=== PATIENT | male | born 1945 | race Caucasian/White ===

== ENCOUNTER 2025-05-16 23:00 | Inpatient (IN) | payer MEDICARE ==
[~2025-05-16] VITALS: Ht 170.2 cm; Wt 72.7 kg
--- NOTE | 2025-05-16 23:24 | Physician Documentation ---
History of Present Illness ~ Chief Complaint: Weakness Stated Complaint: TRANSFER M ALS Time Seen by MD: 23:23 OK to notify your PCP?: Yes HPI Patient presents to the emergency room as a transfer from [facility] for acute kidney injury. Patient has a history of chronic renal insufficiency that has well as dementia in his oriented at two at her baseline. Patient also has history of coronary artery disease and diabetes mellitus. They has been monitoring patient's renal status for some time. Transferred to our facility for evaluation by Nephrology for possible dialysis. Apparently patient has been having increasing weakness over the past few days and caregiver brought patient in to be evaluated. Medication Reconciliation Allergies: Coded Allergies: No Known Allergies (Unverified , 05/16/25) Scheduled Atorvastatin Calcium (Atorvastatin Calcium), 1 TAB PO DAILY, (Reported) Carvedilol (Carvedilol), 1 TAB PO BID, (Reported) Clopidogrel Bisulfate (Clopidogrel), 1 TAB PO DAILY, (Reported) Empagliflozin (Jardiance), 1 TAB PO DAILY, (Reported) Hydralazine HCl (Hydralazine HCl), 1 TAB PO BID, (Reported) Oxybutynin Chloride (Ditropan Xl), 1 TAB PO DAILY, (Reported) Miscellaneous Medications Atorvastatin Calcium (Atorvastatin Calcium), 1 TAB PO, (Reported) Glipizide (Glipizide), (Reported) Tirzepatide (Mounjaro), (Reported) Valsartan (Valsartan), (Reported) Review of Systems ROS All review of systems negative except as per HPI Physical Exam Vital Signs: Temperature: 98.0, Source: Oral, Heart Rate: 85, Respiratory Rate: 16, BP: 117/59, Pulse Oximetry: 96, Weight: 72.730 Oxygen Flow Rate: 0 Physical Exam General: Patient is sleeping, easily arousable, pleasantly demented. Head: Normocephalic and atraumatic. Eyes: Conjunctival normal. EOMI. PERRL. ENT: Mucous membranes moist. Neck: Supple, trachea is midline. Chest: Clear to auscultation bilaterally without rales, rhonchi, or wheezes. There is no accessory muscle use or retractions. Cardiac: RRR without murmurs, gallops, or rubs. Progress Results/Orders Results/Orders Orders - DONNELL BYERS MD Cbc/Diff (05/16/25 23:31) BMP (05/16/25 23:31) Page Hospitalist (05/16/25 23:31) Fill Out Med Reconciliation (05/16/25 23:31) Vital Signs 05/16/25 05/16/25 23:02 23:38 Temp 98.0 Pulse 85 Resp 16 B/P (MAP) 117/59 Pulse Ox 96 O2 Flow Rate 0 Medical Decision Making Additional information obtaine: other Findings Patient presents to the emergency room with acute on chronic renal insufficiency transferred from [facility] for possible need for dialysis. We will admit for continued renal resuscitation Differential Dx:Considerations: Include: anemia, CVA, dehydration, dysrhythmia, electrolyte imbalance, encephalopathy, Guillain-Williams, hypoglycemia, hypotension, hypovolemia, labyrinthitis, Meniere's disease, myasathenia gravis, myocardial infarction, pulmonary embolus, renal failure, respiratory failure, TIA, VBI, vertigo central, vertigo peripheral, vestibular neuronitis, other Departure Admitted to Inpatient Unit: yes, to hospitalist Impression: Primary Impression: Acute kidney injury Additional Impression: Dehydration Condition: Guarded Referrals: NO PRIMARY CARE PROVIDER (PCP) Signature Scribe Signature: No scribe Attestation: The note accurately reflects work and decisions made by me.Donnell Byers MD 05/16/25 23:42 DONNELL BYERS MD May 16, 2025 23:24
[2025-05-16] MEDS ORDERED: VALS160T30 PO (23:36)
[2025-05-16] MEDS ORDERED: TIRZ2.5P SQ (23:36)
[2025-05-16] MEDS ORDERED: CLOP75TA34 PO (23:36)
[2025-05-16] MEDS ORDERED: HYDR50TA46 PO (23:36)
[2025-05-16] MEDS ORDERED: CARV-50 PO (23:36)
[2025-05-16] MEDS ORDERED: ATOR40TA72 PO (23:36)
[2025-05-16] MEDS ORDERED: ATOR40TA71 PO (23:36)
[2025-05-16] MEDS ORDERED: OXYB10TA30 PO (23:36)
[2025-05-16] MEDS ORDERED: EMPA10TA PO (23:36)
[2025-05-16] MEDS ORDERED: GLIP5TAB23 PO (23:36)
[2025-05-17] VITALS (11 sets, daily range): BP systolic 110–142; BP diastolic 50–68; PULSE 74–86; RESP 10–20; TEMP 97.3–98.2; O2SAT 94–99
[2025-05-17 00:09] LABS: CREATININE 4.87 MG/DL (0.60-1.10); TOTAL CARBON DIOXIDE 18.5 MMOL/L (24-32); eCRCL 12 ML/MIN; eGFR 12 ML/MIN
[2025-05-17] MEDS: LidoCAINE 2% Topical Jelly 11mL syringe (UROJET) TOP ONE (01:25)
[2025-05-17] MEDS ORDERED: ondansetron/PF 4mg/2ml inj IV PRN (01:25)
[2025-05-17] MEDS: PERFLUTREN PROTEIN-A MICROSPHR (Optison) 0.22 MG/ML 3ML VIAL IV ONE (01:25)
[2025-05-17] MEDS ORDERED: mag hydrox/Alum hydrox/simeth 30ml oral suspension PO PRN (01:25)
[2025-05-17] MEDS ORDERED: HYDROcodone/acetaminophen 5mg/325mg tablet PO PRN (01:25)
[2025-05-17] MEDS ORDERED: potassium Cl 40MEQ/1/2NS 520ml 520 ML IV PRN (01:25)
[2025-05-17] MEDS ORDERED: magnesium sulf-water 4G/100mL 100 ML IV PRN (01:25)
[2025-05-17] MEDS ORDERED: magnesium Cl slow-release 64mg tablet PO PRN (01:25)
[2025-05-17] MEDS ORDERED: potassium Cl 20 mEq SR tablet PO PRN (01:25)
[2025-05-17] MEDS ORDERED: magnesium sulf-water 2g/50mL 50 ML IV PRN (01:25)
--- NOTE | 2025-05-17 01:40 | HISTORY AND PHYSICAL-Residence ---
History & Physical Providers to CC Resident Creating Document: SANTA PEDRAZA, RES ~ History of Present Illness Reason for Admit\\Complaint: SEVERE MONE History of Present Illness Patient is a poor historian, history is limited. History gathered from ED sign- out and medical records from [place]. 80-year-old male with history of hypertension, diabetes, CKD, is transferred from [place] for further evaluation and management of severe acute kidney injury, with concern of possible dialysis and nephrology consultation. His niece (Audra: [phone]) had called [phone] as the patient was feeling unwell for a week. Patient states that he thought it was flu, and he has been feeling weak and not right since the last one week. He complains of chills. Denies significant chest pains, diaphoresis, fevers, nasal congestion, expectoration, palpitations, or weight loss/weight gain. No other associated symptoms. No aggravating or relieving factors. He states that Cancino catheter was placed today at the facility. He has history of CKD, unknown baseline creatinine. He lives by himself with his CAD. He has been having kidney issues for the last couple of years since they are on and off". Does not drink or smoke. Uses a walker for ambulation. Discussed advanced directives and he wishes to be a full code. He has a POLST that states DNR, but currently he is saying he wants to be a full code. He also has a POA Keyla jade [phone], will need to readdress code status with her in a.m.. Allergies: Coded Allergies: No Known Allergies (Unverified , 05/16/25) Home Medications Home Medications Active Reported Atorvastatin Calcium 40 Mg Tablet 1 Tab PO Jardiance (Empagliflozin) 10 Mg Tablet 1 Tab PO DAILY Valsartan 160 Mg Tablet Glipizide 5 Mg Tablet Carvedilol 12.5 Mg Tablet 1 Tab PO BID Hydralazine HCl 50 Mg Tablet 1 Tab PO BID Mounjaro (Tirzepatide) 2.5 Mg/0.5 Ml Pen.injctr Ditropan Xl (Oxybutynin Chloride) 10 Mg Tab.osm.24 1 Tab PO DAILY Clopidogrel (Clopidogrel Bisulfate) 75 Mg Tablet 1 Tab PO DAILY Atorvastatin Calcium 40 Mg Tablet 1 Tab PO DAILY Past Medical History Past Medical History Hypertension Diabetes type 2 CKD BPH CAD COPD hyperlipidemia Past Surgical History Surgical History Comment Unknown at this time ROS ROS Reviewed in full. All negative except for pertinent positive HPI. Exam Vitals: Vital Signs Date Time Temp Pulse Resp B/P (MAP) Pulse Ox O2 Delivery O2 Flow Rate FiO2 05/16/25 23:38 05/16/25 23:02 98.0 85 16 96 0 General: General: Awake and Alert x3, no acute distress. HEENT: Conjunctiva pink, Sclera clear, Mucus Membranes dry. Neck: Supple without masses and tenderness. Resp: Unlabored. Equal breath sounds bilaterally. Heart: Regular rhythm, normal S1 and S2, no rub, murmur or gallop. Abdomen: Soft and non tender no organomegaly. Normal bowel sounds x4 quadrant normoactive. No guarding or rigidity. Genitourinary: Cancino catheter in place Extremities: Normal ROM, no swelling, nontender. No cyanosis,clubbing or edema. REGULATORY ADMINISTRATOR: No gross motor or sensory abnormalities. Skin: Multiple bruises on the upper extremity and lower abdomen. Diagnostic Data Last Recorded Lab Results: 05/16/25 2335 Advance Care Planning Advanced Care plannin - 30 Minutes (I spent total of 15-30 minutes reviewing various resuscitative measures with the patient. Patient decided to be full code. He has a POLST that says DNR, but currently he is awake alert and oriented x3 and wants to be a full code. He also has a SIENNA Ramires contact number is [phone], will need to contact her and readdress code status in a.m..) Additional Plan 80-year-old male with history of hypertension, diabetes, CKD, is transferred from [place] for further evaluation and management of severe acute kidney injury, with concern of possible dialysis and nephrology consultation. AWAITING LABS AT OUR FACILITY Severe MONE on CKD, under evaluation [unknown baseline] Labs from [place]: WBCs 6.5, hemoglobin 12, hematocrit 37, neutrophils 77 platelets 116 BNP sodium 138, potassium 4.5, carbon dioxide 14, anion gap 10, BUN 108, creatinine 5.1, GFR 11, uric acid 8.7 He appears to be dehydrated, he does have a Cancino catheter in place that was placed in [facility] E's Continue to monitor I's and os Continue aggressive fluid resuscitation, he received 3 L fluid and the facility. Continue fluids NS at 100 mL/hour for now Follow up with ABG, urine spot studies, renal ultrasound, A1c, and TSH, lipid panel, UA U tox, echo and BNP Hold all nephrotoxic medications. Nephrology consultation in a.m. Diabetes type 2 Hypertension CKD Hyperlipidemia BPH Awaiting med rec Code Status: Full code DVT prophylaxis: Heparin Analgesia/sedation: None Line/tube: PIV GI prophylaxis: None Nutrition: Renal diet Prognosis: Guarded Disposition: Continue medical management. Patient decided to be full code. He has a POLST that says DNR, but currently he is awake alert and oriented x3 and wants to be a full code. He also has a STEPHENA Keyla contact number is [phone], will need to contact her and readdress code status in a.m.. Santa Pedraza MD. IM Resident PGY-3 Patient case discussed with resident, agree with the assessment and plan as above. Adelnie Diallo MD Critical Care Date of Service: May 17, 2025 Billing Provider: ADELINE DIALLO MD, ELIZABETH, RES May 17, 2025 01:40 ADELINE DIALLO MD May 17, 2025 14:31
[2025-05-17] MEDS ORDERED: ipratropium/albuterol 3ml nebule NEB PRN (01:55)
[2025-05-17] MEDS ORDERED: glucagon, human recombinant 1mg kit SUBCUT PRN (02:00)
[2025-05-17] MEDS ORDERED: dextrose 50%-water 50ml dispensing syringe IV PRN ×2 (02:00)
[2025-05-17] MEDS ORDERED: DEXTROSE 15 GM of carb/4 tabs (each vial/BOTTLE has 4 tablets) PO PRN ×2 (02:00)
[2025-05-17 02:16] LABS: MEAN PLATELET VOLUME 10.4 FL (7.4-10.4); RED CELL DISTRIBUTION WIDTH 15.1 % (11.5-14.5)
[2025-05-17] MEDS: normal saline 1000ml 1,000 ML IV SCH (02:59)
[2025-05-17 03:30] LABS: PRO BRAIN NATRIURETIC PEPTIDE 432 PG/ML (0-450)
[2025-05-17 05:22] LABS: INFLUENZA TYPE A ANTIGEN RAPID NEGATIVE (Negative); INFLUENZA TYPE B ANTIGEN RAPID NEGATIVE (Negative)
[2025-05-17] MEDS: INSULIN LISPRO 100 UNIT/ML INSULN.PEN MULTI-DOSE SQ SCH ×2 (07:00→09:00)
[2025-05-17] MEDS ORDERED: heparin, porcine 5000 units/ml vial SQ SCH (08:00)
[2025-05-17] MEDS: K and/or MAG REPLACEMENT MC SCH (08:00)
[2025-05-17 08:03] LABS: MEAN PLATELET VOLUME 9.2 FL (7.4-10.4); RED CELL DISTRIBUTION WIDTH 15.2 % (11.5-14.5)
[2025-05-17 08:26] LABS: CREATININE 4.56 MG/DL (0.60-1.10); TOTAL CARBON DIOXIDE 18.1 MMOL/L (24-32); eCRCL 12 ML/MIN; eGFR 13 ML/MIN
[2025-05-17] MEDS: docusate sod 100mg capsule PO SCH (08:35)
[2025-05-17] MEDS: heparin, porcine 5000 units/ml vial SQ SCH (08:36)
--- NOTE | 2025-05-17 09:11 | RADIOLOGY REPORT ---
CHEST RADIOGRAPH Indication: Congestion Technique: Single frontal view of the chest was obtained COMPARISON: None FINDINGS: Lines and Tubes: None Lungs: Left basilar subsegmental atelectasis. Pleura: No effusion. No pneumothorax. Cardiomediastinal contours: Unremarkable Bones: Unremarkable IMPRESSION: Left basilar subsegmental atelectasis.
[2025-05-17] MEDS ORDERED: sodium bicarbonate (8.4%) inj. 100 MEQ in normal saline 1000ml 1,000 ML IV SCH (10:20)
--- NOTE | 2025-05-17 11:00 | RADIOLOGY REPORT ---
CLINICAL HISTORY: severe anselmo TECHNIQUE: Complete ultrasound exam of the kidneys and bladder was performed. COMPARISON: None FINDINGS: The right kidney has normal echogenicity and measures 9 cm. There are cysts evidence for stone. There is measuring up to 1.5 cm with no no hydronephrosis. The left kidney has normal echogenicity and measures 9.4 cm. There is no focal parenchymal abnormality or evidence for stone. There is no hydronephrosis. The bladder is not seen, likely decompressed. IMPRESSION: NO SIGNIFICANT SONOGRAPHIC ABNORMALITY OF THE KIDNEYS.
[2025-05-17] MEDS: sodium bicarbonate (8.4%) inj. 100 MEQ in sodium chloride 0.45% 1,000 ML IV SCH (11:14)
[2025-05-17 11:31] LABS: LEUKOCYTE ESTERASE ,URINE TRACE (Neg); NITRITES, URINE NEGATIVE (Neg); OCCULT BLOOD,URINE LARGE (Neg)
[2025-05-17 11:40] LABS: UA COLLECTION TYPE STRAIGHT CATH
[2025-05-17 11:41] LABS: SQUAMOUS EPITHELIAL CELL,UR FEW /LPF (FEW)
[2025-05-17 11:45] LABS: OSMOLALITY UA 450.0 MOSM/K (50-1400)
[2025-05-17 11:54] LABS: URINE AMPHETAMINE SCREEN NEGATIVE (Neg); URINE BARBITUATE SCREEN NEGATIVE (Neg); URINE BENZODIAZEPINES SCREEN NEGATIVE (Neg); URINE CANNABINOID SCREEN NEGATIVE (Neg); URINE COCAINE SCREEN NEGATIVE (Neg); URINE METHADONE SCREEN NEGATIVE (Neg); URINE OPIATE SCREEN NEGATIVE (Neg); URINE PHENCYCLIDINE SCREEN NEGATIVE (Neg)
--- NOTE | 2025-05-17 17:30 | PROGRESS NOTE- Residence ---
Progress Note - Resident Providers to CC Resident Creating Document: AGNES ANDERSON RES CC: PERFECTO MCNEIL MD ~ Antibiotic Timeout Antibiotic Ordered?: Yes Subjective Patient was seen and examined at bedside, he is alert and oriented x3. However he has very minimal knowledge about his medical condition. Spoke with his niece Keyla Zhu [phone] in great detail regarding patient's conditions. She stated that patient has had mild cognitive impairment, and was a special child and attended classes as a child, patient lives alone by himself does not have any other close family who live along with him. Patient's niece stays in [place], who was aware of most of patient's clinical condition. 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 I have requested patient's nurse to get patient's details faxed from them Objective Vital Signs Date Time Temp Pulse Resp B/P (MAP) Pulse Ox O2 Delivery O2 Flow Rate FiO2 05/17/25 15:37 74 16 95 Room Air* 0 21 05/17/25 15:00 97.5 110/54 (72) Result Diagram: 05/17/25 0729 05/17/25 0729 General: Awake, oriented to person, place and time HEENT: Conjunctive are pink, sclerae clear, no icterus, pupil is equal in both sides, reactive to light, no ear discharge, no pharyngeal erythema or an edema. Neck: Supple, no JVD, no lymphadenopathy and thyromegaly. Chest: Equal air entry on both lungs, no additional sounds no rhonchi no wheezing at the moment. Cardiovascular: S1-S2 regular sinus rhythm and, regular rate, no gallops, no rubs, no murmurs Abdomen: No visible peristalsis, Bowel sounds present on auscultation, soft, no tenderness, no guarding, no rigidity, bruise near umbilicus post Mounjaro injection Extremities: Amputated left index finger(post trauma), no pitting edema bilaterally, capillary refill intact, peripheral pulsations are intact on both sides Neurologic: Mental status: alert and conscious, oriented to place, person and time, preserved memory, normal speech. Cranial nerves I-XII: Normal. Motor system: Preserved power, coordination, no evidenced involuntary movements, strength in lower extremities 3/5, strength in upper extremities 5/5 Sensory system: Preserved temperature, pain and vibration sensation. 2+ deep tendon reflexes in biceps, triceps, quadriceps. Negative Babinski. Cerebellar: No nystagmus, dysdiadochokinesia, normal [id number] testing. Musculoskeletal: No joint swelling, deformities, inflammations, and no scoliosis and back tenderness Skin: Warm and dry. Dry oral mucosa. Multiple bruises present Advance Care Planning Advanced Care plannin - 30 Minutes Plan Plan 80-year-old male with history of hypertension, diabetes, CKD, is transferred from [place] for further evaluation and management of severe acute kidney injury, with concern of possible dialysis and nephrology consultation. 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 Hide Inspector And Sorter Dr. Rob has been consulted, awaiting recommendations Urinary tract infection Patient has a Cancino is in place, urinalysis was positive for trace leukocyte esterase, 5-10 WBC, slightly cloudy urine Plan Initiated the patient on IV ceftriaxone 1 g, Ordered urine cultures, will make changes in antibody based on urine culture and sensitivity Type 2 diabetes mellitus on oral hypoglycemic(glipizide and Mounjaro) Patient's A1c is well controlled at 6.1% Patient is likely prediabetic Discontinuing hyperglycemia hypoglycemic protocol patient's blood glucose has been 100-120mg/dl Hypertension Patient's home medications include carvedilol 12.5 mg and hydralazine p.o. 50mg bid Patient's blood pressures have been soft Held patient's home medication hydralazine 50 mg, we will continue to monitor blood pressure and titrate his medications as required Mild aortic valve stenosis Patient's echocardiogram reported normal LVF with mild concentric hypertrophy. LVEF is 65-70%. Aortic valve appears mildly stenotic, ANGÉLICA: 1.51 cmsq; Pkv: 2.2 m/sec; Gradients:21/10 mmHG. Mild insufficiency. Would recommend outpatient follow up Hyperlipidemia Lipid panel pending New patient's home medication atorvastatin 40 mg once daily Code Status: Full code DVT prophylaxis: Heparin Analgesia/sedation: None Line/tube: PIV GI prophylaxis: None Nutrition: Renal diet Prognosis: Guarded Disposition: Continue medical management. Nephrology consult pending Patient decided to be full code. He has a POLST that says DNR(limited code, no intubation) he was recently signed with the patient in presence of his primary care doctor, however currently patient states that he wants to be a full code. Agnes Anderson MD. IM Resident PGY-1 Patient case discussed with resident, agree with the assessment and plan as above. Date of Service: May 17, 2025 Billing Provider: PERFECTO MCNEIL MD Common Visit Codes: [id number] INP/OBS CARE(HIGH) AGNES ANDERSON, RES May 17, 2025 17:30 PERFECTO MCNEIL MD May 24, 2025 18:37
[2025-05-17] MEDS: CefTRIAXone/D5W-Rocephin 1gm 50 ML IV SCH (17:48)
[2025-05-17 18:02] LABS: UA UREA RANDOM 540.0 MG/DL
--- NOTE | 2025-05-17 18:16 | CARDIOLOGY REPORT ---
APPROVED REPORT EXAM: Comprehensive 2D, Doppler, and color-flow Echocardiogram. Patient Location: 301 Heart Rate: 75 bpm Rhythm: NSR Indications HYPERTENSION ACUTE KIDNEY INJURY DIABETES MELLITUS CORONARY ARTERY DISEASE COPD SCIENCE CONSULTANT: None PRIOR ECHOCARDIOGRAM: None. 2D Dimensions RVDd 2.6 cm IVSd 1.2 (0.7-1.1cm) LVDd 4.3 cm PWd 1.1 (0.7-1.1cm) IVSs 1.5 (0.8-1.2cm) LVDs 2.7 (2.5-4.0cm) PWs 1.3 (0.8-1.2cm) LVOT Diameter 1.97 (1.8-2.4cm) LVEF(%) 69.2 (>50%) FS (%) 38.6 % SV 58.1 ml CO 4.5 L/min M-Mode Dimensions Left Atrium(MM) 2.85 (2.5-4.0cm) Aortic Root 3.19 (2.2-3.7cm) Aortic Cusp Exc 1.41 (1.5-2.0cm) Aortic Valve AoV Peak Mayank. 223.0 cm/s AoV VTI 50.8 cm AO Peak GR. 21.3 mmHg AO Mean GR. 10 mmHg LVOT VTI 23.63 cm LVOT Peak Mayank. 112.5 cm/s ANGÉLICA (VTI) 1.51 cm2 AI P 1/2 Time 456 ms AV DI 0.46 % Mitral Valve MV E Velocity 53.8 cm/s MV Peak Gr. 1 mmHg MV A Velocity 83.1 cm/s MV PHT 60 ms E/A Ratio 0.6 MVA (PHT) 3.67 cm2 MV VMax 47.6 cm/s LEFT VENTRICLE Normal LV size and function. Mild concentric hypertrophy. Overall LVEF is 65-70%. RIGHT VENTRICLE The right ventricle is normal size and function ATRIA Left atrium is mildly dilated. AORTIC VALVE Trileaflet AV appears mildly stenotic. ANGÉLICA: 1.51 cmsq; Pkv: 2.2 m/sec; Gradients:21/10 mmHG. Mild insufficiency. MITRAL VALVE The mitral valve is normal in structure. Trace regurgitation. TRICUSPID VALVE TV appears structurally normal with no regurgitation. PULMONIC VALVE Pulmonic valve is not well visualized. GREAT VESSELS The aortic root is normal in size. The ascending aorta is normal in size. The IVC is normal in size and collapses >50% with inspiration. PERICARDIUM Normal pericardium. No effusion. Conclusion Overall LVEF is 65-70%. Normal LV size and function. Mild concentric hypertrophy. The right ventricle is normal size and function Trileaflet AV appears mildly stenotic. ANGÉLICA: 1.51 cmsq; Pkv: 2.2 m/sec; Gradients:21/10 mmHG. Mild insufficiency. The mitral valve is normal in structure. Trace regurgitation. TV appears structurally normal with no regurgitation. Normal pericardium. No effusion.
[2025-05-17 18:23] LABS: CREATININE 4.14 MG/DL (0.60-1.10); TOTAL CARBON DIOXIDE 20.0 MMOL/L (24-32); eCRCL 14 ML/MIN; eGFR 14 ML/MIN
--- NOTE | 2025-05-17 18:23 | CONSULTATION REPORT ---
Consult Providers to CC ~ History of Present Illness Reason for Admit\Complaint: Flu like symptoms History of Present Illness This is a 80-year-old frail male with a history of hypertension, type 2 diabetes mellitus, chronic kidney disease (CKD), coronary artery disease, COPD, BPH, GERD, and hyperlipidemia, transferred for evaluation of severe acute kidney injury (MONE) on CKD. He presented after a week of progressive weakness and malaise, with no fever, chest pain, or respiratory symptoms. He is functionally limited, ambulates with a walker, and is on multiple home medications including SGLT2 inhibitor, sulfonylurea, GLP-1 agonist, valsartan, carvedilol, hydralazine, clopidogrel, atorvastatin, and Ditropan. On admission, he was hemodynamically stable (BP 110/54, HR 77, RR 14, T 97.5, SpO2 97% RA). Laboratory evaluation revealed sodium 144, potassium 4.5, chloride 116, CO2 18.5, BUN 94, creatinine 4.87, glucose 114, anion gap 10, uric acid 8.7. Renal ultrasound showed no structural abnormalities. His first 24-hour urine output was 1320 mL. Allergies: Coded Allergies: No Known Allergies (Unverified , 05/16/25) Home Medications Home Medications Active Reported Jardiance (Empagliflozin) 10 Mg Tablet 1 Tab PO DAILY Valsartan 160 Mg Tablet 1 Tab PO BID Glipizide 5 Mg Tablet 0.5 Tab PO QAM Carvedilol 12.5 Mg Tablet 1 Tab PO BID Hydralazine HCl 50 Mg Tablet 1 Tab PO BID Mounjaro (Tirzepatide) 2.5 Mg/0.5 Ml Pen.injctr 0.5 Ml SQ Q7D Ditropan Xl (Oxybutynin Chloride) 10 Mg Tab.osm.24 1 Tab PO DAILY Clopidogrel (Clopidogrel Bisulfate) 75 Mg Tablet 1 Tab PO DAILY Atorvastatin Calcium 40 Mg Tablet 1 Tab PO DAILY Past Medical History Past Medical History Reviewed Past Surgical History Surgical History Comment Reviewed Past Social History Social History Comment Reviewed Health Maintenance Health Maintenance Reviewed ROS ROS All other systems negative by patient report Exam Vitals: Vital Signs Date Time Temp Pulse Resp B/P (MAP) Pulse Ox O2 Delivery O2 Flow Rate FiO2 05/17/25 15:37 74 16 95 Room Air* 0 21 05/17/25 15:00 97.5 110/54 (72) Alert, with some confusion RRR w/o murmur CTAB +BS, NT No edema Diagnostic Data Last Recorded Lab Results: 05/17/25 0729 05/17/25 0729 Diagnostic Data: I & O 05/18/25 06:59 Intake Total 3195 ml Output Total 1320 ml Balance 1875 ml Intake Oral 845 ml IV Total 1150 ml Other 1200 ml Output Urine Total 1320 ml Problems: (1) Acute kidney injury Status: Acute Assessment & Plan: Acute Kidney Injury on Chronic Kidney Disease (MONE on CKD): The patient has severe azotemia (BUN 94, creatinine 4.87) with a normal renal ultrasound and preserved urine output (1320 mL/24h), suggesting non-oliguric MONE. The etiology is likely multifactorial, with pre-renal azotemia from volume depletion (history of poor oral intake, mild hypotension), possible medication effects (SGLT2 inhibitor, sulfonylurea, PAUL/ARB, hydralazine), and underlying CKD. There is no evidence of post-renal obstruction or intrinsic renal disease (no hematuria, no proteinuria reported, normal renal imaging). The metabolic profile shows mild hypernatremia, hyperchloremia, and a non-anion gap metabolic acidosis (CO2 18.5, anion gap 10), which is typical in advanced CKD and volume depletion. The preserved urine output and absence of obstruction or intrinsic renal findings point toward pre-renal MONE superimposed on CKD, likely from hypovolemia and medication effects. The metabolic derangements are consistent with advanced renal dysfunction. Continue to hold nephrotoxic and renally cleared medications: SGLT2 inhibitor (Jardiance), sulfonylurea (glipizide), GLP-1 agonist (Mounjaro), valsartan, and hydralazine. Continue carvedilol for cardiac protection, monitoring for bradycardia and hypotension. Maintain euvolemia: Given stable BP and urine output, continue cautious IV isotonic fluids (e.g., 0.9% NaCl at 5075 mL/hr), reassessing volume status frequently. Avoid overhydration, especially with history of CAD and COPD. Monitor for signs of fluid overload (JVD, crackles, edema) and adjust fluids accordingly. Daily labs: BMP, creatinine, BUN, CO2, glucose, CBC. Monitor urine output closely; maintain strict intake/output records. Monitor for complications: hyperkalemia, worsening acidosis, uremic symptoms (encephalopathy, pericarditis, bleeding). 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 Reassess daily. Avoid NSAIDs and other nephrotoxins. Additional Plan Type 2 Diabetes Mellitus: Glycemic control is stable (glucose 114), but all oral agents should remain on hold due to MONE and risk of hypoglycemia. Renal dysfunction increases risk of hypoglycemia with sulfonylureas and SGLT2 inhibitors; GLP-1 agonists are also not recommended in MONE. Plan: Continue to hold glipizide, Jardiance, and Mounjaro. Monitor blood glucose every 6 hours; initiate sliding scale insulin as needed for hyperglycemia. Reassess diabetes regimen once renal function stabilizes. Hypertension: Blood pressure is low-normal (110/54). Lawn aggressive BP lowering should be avoided to preserve renal perfusion. PAUL/ARB and hydralazine can worsen renal hypoperfusion in MONE; carvedilol may be continued if tolerated. Plan: Continue to hold valsartan and hydralazine. Continue carvedilol if hemodynamically stable. Monitor BP every 4 hours; titrate antihypertensives as needed. Chronic Kidney Disease: CKD management is supportive during MONE. Focus is on preventing further injury and managing complications. Plan: Renal diet: restrict sodium, potassium, and phosphorus as indicated. Monitor for CKD complications: anemia, acidosis, hyperphosphatemia, secondary hyperparathyroidism. Nephrology to follow for ongoing management and dialysis planning if needed. Benign Prostatic Hyperplasia (BPH) with Cancino catheter: No evidence of obstruction on ultrasound; Cancino is patent. Obstructive uropathy is unlikely; Cancino may be continued for accurate output monitoring. Plan: Maintain Cancino catheter for strict I/O. Monitor for signs of UTI; obtain urinalysis and culture if fever or leukocytosis develops. Urology consult if any new evidence of obstruction or hematuria. Coronary Artery Disease, Hyperlipidemia: Continue statin therapy for secondary prevention. Statin is safe to continue; cardiac risk is elevated in MONE. Plan: Continue atorvastatin. Monitor for chest pain, ECG changes, and troponin if indicated. COPD: Monitor for respiratory status changes, especially with fluid management. Fluid overload can precipitate respiratory compromise in COPD. Plan: Monitor oxygen saturation and respiratory status. Avoid fluid overload. GERD: Continue home regimen as tolerated. No acute issues. Plan: Continue current GERD management. Frailty, Functional Decline: Monitor for delirium, falls, and deconditioning during hospitalization. Elderly, frail patients are at high risk for hospital-associated complications. Plan: Early mobilization, physical therapy consult. Fall precautions. Monitor for delirium; minimize sedating medications. PATRICE BARBOSA III DO May 17, 2025 18:23
[2025-05-17] MEDS: lactobacillus rhamnosus 10,000 MMU CELLS/CAPSULE PO SCH (19:40)
[2025-05-17] MEDS ORDERED: insulin glargine (Lantus) pen - multi-dose SQ SCH (21:00)
[2025-05-18] VITALS (10 sets, daily range): BP systolic 119–157; BP diastolic 55–87; PULSE 75–92; RESP 14–17; TEMP 97.3–97.8; O2SAT 92–98
[2025-05-18 07:07] LABS: MEAN PLATELET VOLUME 9.8 FL (7.4-10.4); RED CELL DISTRIBUTION WIDTH 14.7 % (11.5-14.5)
[2025-05-18 07:19] LABS: INR 1.0 INR
--- NOTE | 2025-05-18 07:39 | ELECTROCARDIOGRAPH REPORT ---
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 PETERSON Gomes Measurements Intervals [place] Rate: 77 P: 8 GA: 173 QRS: -54 QRSD: 99 T: 23 QT: 412 QTc: 467 Interpretive Statements Sinus rhythm LAD, consider left anterior fascicular block Electronically Signed On 05-18-2025 17:06:[address] PETERSON Gomes Please click the below link to view image of tracing.
[2025-05-18 07:44] LABS: CHOL/HDL RATIO 2.9 (0.00-4.99); CREATININE 3.84 MG/DL (0.60-1.10); LDL CHOLESTEROL 41 MG/DL (50-100); PHOSPHORUS 2.7 MG/DL (2.3-4.5); TOTAL CARBON DIOXIDE 21.5 MMOL/L (24-32); eCRCL 15 ML/MIN; eGFR 15 ML/MIN
[2025-05-18] MEDS: sodium bicarbonate (8.4%) inj. 100 MEQ in dextrose 5%-water 1,000 ML IV SCH (08:10)
[2025-05-18] MEDS: JUVEN Shake w/Arg/Glut/Ca2+Bmb (Juven 19.3gm) pkt 240ml PO SCH (08:25)
--- NOTE | 2025-05-18 16:57 | PROGRESS NOTE- Residence ---
Progress Note - Resident Providers to CC Resident Creating Document: AGNES ANDERSON RES CC: PERFECTO MCNEIL MD ~ Antibiotic Timeout Antibiotic Ordered?: Yes Subjective Patient was seen and examined at bedside, he is alert and oriented x3. Patient stated that he is feeling much better compared to before, he stated that his confusion per patient is better than before. No other acute overnight symptoms Spoke with his niece Keyla Zhu [phone] in great detail regarding patient's conditions. She stated that patient has had mild cognitive impairment, and was a special child and attended classes as a child, patient lives alone by himself does not have any other close family who live along with him. Patient's niece stays in [place], who was aware of most of patient's clinical condition. She stated that patient has a experimental mechanic electrical([phone]) and marine diesel technician([phone]), gave both their numbers. I have requested patient's nurse to get patient's details faxed from them Objective Vital Signs Date Time Temp Pulse Resp B/P (MAP) Pulse Ox O2 Delivery O2 Flow Rate FiO2 05/18/25 15:25 97.5 78 14 143/74 (97) 96 Room Air 05/18/25 08:15 0.0 21 Result Diagram: 05/18/2562805/18/25 06 General: Awake, oriented to person, place and time HEENT: Conjunctive are pink, sclerae clear, no icterus, pupil is equal in both sides, reactive to light, no ear discharge, no pharyngeal erythema or an edema. Neck: Supple, no JVD, no lymphadenopathy and thyromegaly. Chest: Equal air entry on both lungs, no additional sounds no rhonchi no wheezing at the moment. Cardiovascular: S1-S2 regular sinus rhythm and, regular rate, no gallops, no rubs, no murmurs Abdomen: No visible peristalsis, Bowel sounds present on auscultation, soft, no tenderness, no guarding, no rigidity, bruise near umbilicus post Mounjaro injection Extremities: Amputated left index finger(post trauma), no pitting edema bilaterally, capillary refill intact, peripheral pulsations are intact on both sides Neurologic: Mental status: alert and conscious, oriented to place, person and time, preserved memory, normal speech. Cranial nerves I-XII: Normal. Motor system: Preserved power, coordination, no evidenced involuntary movements, strength in lower extremities 3/5, strength in upper extremities 5/5 Sensory system: Preserved temperature, pain and vibration sensation. 2+ deep tendon reflexes in biceps, triceps, quadriceps. Negative Babinski. Cerebellar: No nystagmus, dysdiadochokinesia, normal [id number]-[id number] testing. Musculoskeletal: No joint swelling, deformities, inflammations, and no scoliosis and back tenderness Skin: Warm and dry. Dry oral mucosa. Multiple bruises present Coagulation Studies Laboratory Tests Test 05/18/25 06:29 Prothrombin Time 10.5 SECONDS (9.0-12.0) INR International Normalized Ratio 1.0 INR Coagulation Comments Advance Care Planning Advanced Care plannin - 30 Minutes Plan Plan 80-year-old male with history of hypertension, diabetes, CKD, is transferred from [place] for further evaluation and management of severe acute kidney injury, with concern of possible dialysis and nephrology consultation. 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 Fish Straightener Dr. Rob has been consulted, awaiting recommendations Urinary tract infection Patient has a Cancino is in place, urinalysis was positive for trace leukocyte esterase, 5-10 WBC, slightly cloudy urine Plan Continue the patient on IV ceftriaxone 1 g, and Culturelle 10,000 BID Ordered urine cultures, will make changes in antibody based on urine culture and sensitivity Type 2 diabetes mellitus on oral hypoglycemic(glipizide and Mounjaro) Patient's A1c is well controlled at 6.1% Patient is likely prediabetic Discontinuing hyperglycemia hypoglycemic protocol patient's blood glucose has been 100-120mg/dl Hypertension Patient's home medications include carvedilol 12.5 mg and hydralazine p.o. 50mg bid Patient's blood pressures have been soft Held patient's home medication hydralazine 50 mg, we will continue to monitor blood pressure and titrate his medications as required Mild aortic valve stenosis Patient's echocardiogram reported normal LVF with mild concentric hypertrophy. LVEF is 65-70%. Aortic valve appears mildly stenotic, ANGÉLICA: 1.51 cmsq; Pkv: 2.2 m/sec; Gradients:21/10 mmHG. Mild insufficiency. Would recommend outpatient follow up Hyperlipidemia Lipid panel pending New patient's home medication atorvastatin 40 mg once daily Mild protein malnutrition Nutrition consult; Continue Tavares shakes t.i.d. Code Status: Full code DVT prophylaxis: Heparin Analgesia/sedation: None Line/tube: PIV GI prophylaxis: None Nutrition: Renal diet Prognosis: Guarded Disposition: Continue medical management. Fish Straightener Dr. Rob following the patient, appreciate recommendations. Patient decided to be full code. He has a POLST that says DNR(limited code, no intubation) he was recently signed with the patient in presence of his primary care doctor, however currently patient states that he wants to be a full code. Agnes Anderson MD. IM Resident PGY-1 Patient case discussed with resident, agree with the assessment and plan as above. Date of Service: May 18, 2025 Billing Provider: PERFECTO MCNEIL MD Common Visit Codes: [id number] INP/OBS CARE(HIGH) AGNES ANDERSON, RES May 18, 2025 16:57 PERFECTO MCNEIL MD May 24, 2025 18:38
--- NOTE | 2025-05-18 17:24 | PROGRESS NOTE ---
Progress Note Dictate Providers to CC ~ Progress Note: This is a frail, elderly male with severe non-oliguric MONE on CKD, likely due to pre-renal azotemia from volume depletion and medication effects, with preserved urine output and no evidence of obstruction or intrinsic renal disease. Management is supportive, focusing on cautious volume repletion, holding nephrotoxic and renally cleared medications, and close monitoring for complications. Diabetes and hypertension regimens are adjusted for renal dysfunction. Cancino catheter care and monitoring for infection are ongoing. Nephrology will continue to follow for possible need for renal replacement therapy and further diagnostic clarification. Antibiotic Ordered?: N/A Subjective Subjective Alert appears comfortable, nurses report no new events since last evaluation Objective Vitals Vital Signs Date Time Temp Pulse Resp B/P (MAP) Pulse Ox O2 Delivery O2 Flow Rate FiO2 05/18/25 15:25 97.5 78 14 143/74 (97) 96 Room Air 05/18/25 08:15 0.0 21 Alert RRR w/o murmur CTAB +BS, NT No edema Lab Results: 05/18/25 0629 05/18/25 0629 Coagulation Studies Laboratory Tests Test 05/18/25 06:29 Prothrombin Time 10.5 SECONDS (9.0-12.0) INR International Normalized Ratio 1.0 INR Coagulation Comments Problem\Assessment\Plan Problems/Diagnosis: (1) Acute kidney injury Assessment & Plan: Acute Kidney Injury on Chronic Kidney Disease (MONE on CKD): The patients MONE is improving, as evidenced by a downtrending creatinine (now 3.84 from 4.87), BUN (now 71 from 94), and stable to slightly increased urine output (1000 mL/24h). He is currently receiving D5W with bicarbonate, which has contributed to correction of his metabolic acidosis (CO2 now 21.5 from 18.5). Electrolytes are stable (sodium 145, potassium 3.9, chloride 115), and he remains non-oliguric. Blood pressure has improved to 143/74, supporting adequate renal perfusion. There are no signs of volume overload or uremic complications, and his respiratory and hemodynamic status remain stable. The improvement in renal function and metabolic parameters, along with stable urine output and hemodynamics, indicate a favorable response to supportive management. The correction of acidosis and maintenance of electrolyte balance with D5W and bicarbonate are appropriate. The absence of hyperkalemia, volume overload, or uremic symptoms means there is no current indication for renal replacement therapy. Plan: Continue D5W with bicarbonate infusion as long as metabolic acidosis persists, monitoring for overcorrection of sodium or glucose. Monitor daily labs: BMP, BUN, creatinine, CO2, glucose, and CBC. Continue to hold nephrotoxic and renally cleared medications (Jardiance, glipizide, Mounjaro, valsartan, hydralazine). Maintain strict intake and output monitoring. Monitor for signs of fluid overload, especially as renal function recovers and with ongoing IV fluids. Reassess fluid and bicarbonate needs daily; titrate or discontinue as acidosis resolves and renal function improves. Continue to avoid NSAIDs and other nephrotoxins. Monitor for any new or worsening symptoms that may indicate need for escalation of care or dialysis (e.g., refractory hyperkalemia, acidosis, volume overload, or uremic symptoms). PATRICE BARBOSA III DO May 18, 2025 17:24
[2025-05-18 18:01] LABS: % IRON SATURATION 27 % (11-46)
[2025-05-19] VITALS (8 sets, daily range): BP systolic 124–151; BP diastolic 56–78; PULSE 56–82; RESP 11–16; TEMP 97.6–98.3; O2SAT 92–97
[2025-05-19 07:14] LABS: MEAN PLATELET VOLUME 10.1 FL (7.4-10.4); RED CELL DISTRIBUTION WIDTH 14.3 % (11.5-14.5)
[2025-05-19 08:09] LABS: CREATININE 3.28 MG/DL (0.60-1.10); PHOSPHORUS 2.3 MG/DL (2.3-4.5); TOTAL CARBON DIOXIDE 26.9 MMOL/L (24-32); eCRCL 17 ML/MIN; eGFR 18 ML/MIN
[2025-05-19] MEDS: ringers solution, lacted 1,000 ML IV SCH (18:40)
--- NOTE | 2025-05-19 18:44 | PROGRESS NOTE- Residence ---
Progress Note - Resident Providers to CC Resident Creating Document: AGNES ANDERSON RES CC: PERFECTO MCNEIL MD ~ Antibiotic Timeout Antibiotic Ordered?: Yes Subjective Patient was seen and examined at bedside, he is alert and oriented x4. Patient has no new symptoms, patient doing well Spoke with his niece Keyla Zhu [phone] in great detail regarding patient's conditions. She stated that patient has had mild cognitive impairment, and was a special child and attended classes as a child, patient lives alone by himself does not have any other close family who live along with him. Patient's niece stays in [place], who was aware of most of patient's clinical condition. 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 I have requested patient's nurse to get patient's details faxed from them Objective Vital Signs Date Time Temp Pulse Resp B/P (MAP) Pulse Ox O2 Delivery O2 Flow Rate FiO2 05/19/25 15:00 98.3 82 12 151/71 (97) 93 Room Air 05/19/25 11:53 0 21 Result Diagram: 05/19/25 0635 05/19/25 0635 General: Awake, oriented to person, place and time HEENT: Conjunctive are pink, sclerae clear, no icterus, pupil is equal in both sides, reactive to light, no ear discharge, no pharyngeal erythema or an edema. Neck: Supple, no JVD, no lymphadenopathy and thyromegaly. Chest: Equal air entry on both lungs, no additional sounds no rhonchi no wheezing at the moment. Cardiovascular: S1-S2 regular sinus rhythm and, regular rate, no gallops, no rubs, no murmurs Abdomen: No visible peristalsis, Bowel sounds present on auscultation, soft, no tenderness, no guarding, no rigidity, bruise near umbilicus post Mounjaro injection Extremities: Amputated left index finger(post trauma), no pitting edema bilaterally, capillary refill intact, peripheral pulsations are intact on both sides Neurologic: Mental status: alert and conscious, oriented to place, person and time, preserved memory, normal speech. Cranial nerves I-XII: Normal. Motor system: Preserved power, coordination, no evidenced involuntary movements, strength in lower extremities 3/5, strength in upper extremities 5/5 Sensory system: Preserved temperature, pain and vibration sensation. 2+ deep tendon reflexes in biceps, triceps, quadriceps. Negative Babinski. Cerebellar: No nystagmus, dysdiadochokinesia, normal inrddj-dz-[id number] testing. Musculoskeletal: No joint swelling, deformities, inflammations, and no scoliosis and back tenderness Skin: Warm and dry. Dry oral mucosa. Multiple bruises present Coagulation Studies Laboratory Tests Test 05/18/25 06:29 Prothrombin Time 10.5 SECONDS (9.0-12.0) INR International Normalized Ratio 1.0 INR Coagulation Comments Advance Care Planning Advanced Care plannin - 30 Minutes Plan Plan 80-year-old male with history of hypertension, diabetes, CKD, is transferred from [place] for further evaluation and management of severe acute kidney injury, with concern of possible dialysis and nephrology consultation. Severe MONE on CKD stage IV (unknown baseline); uremia 2/2 dehydration Patient has a history of CKD used to follow vegetable thinner Patient received 3 L fluid bolus at [facility], the Cancino's catheter was placed to prevent postrenal obstruction Patient's creatinine is downtrending at 3.27, however continues to have significant BUN, acidosis resolved Patient's renal ultrasound is unremarkable, no hydronephrosis Plan Continue to monitor strict input and output, Discontinued patient's bicarb drip, initiated the patient on lactated ringer 75 mL/hour Urine lytes pending ,Hold all nephrotoxic medications. Linderman Operator Dr. Rob has been consulted, patient will follow Dr. Rob outpatient Urinary tract infection Patient has a Cancino is in place, urinalysis was positive for trace leukocyte esterase, 5-10 WBC, slightly cloudy urine Plan Continue the patient on IV ceftriaxone 1 g, and Culturelle 10,000 BID Ordered urine cultures, will make changes in antibody based on urine culture and sensitivity Type 2 diabetes mellitus on oral hypoglycemic(glipizide and Mounjaro) Patient's A1c is well controlled at 6.1% Patient is likely prediabetic Discontinuing hyperglycemia hypoglycemic protocol patient's blood glucose has been 100-120mg/dl Hypertension Patient's home medications include carvedilol 12.5 mg and hydralazine p.o. 50mg bid Patient's last few blood pressures have been mildly elevated, Initiating the patient on hydralazine p.o. 25 mg b.i.d. Mild aortic valve stenosis Patient's echocardiogram reported normal LVF with mild concentric hypertrophy. LVEF is 65-70%. Aortic valve appears mildly stenotic, ANGÉLICA: 1.51 cmsq; Pkv: 2.2 m/sec; Gradients:21/10 mmHG. Mild insufficiency. Would recommend outpatient follow up Hyperlipidemia Continue patient's home medication atorvastatin 40 mg once daily Mild protein malnutrition Nutrition consult; Continue Tavares shakes t.i.d. Code Status: Full code DVT prophylaxis: Heparin Analgesia/sedation: None Line/tube: PIV GI prophylaxis: None Nutrition: Renal diet Prognosis: Guarded Disposition: Continue medical management. Patient will follow up with vegetable thinner Dr. Rob outpatient. Physical therapy recommended home with assist but patient does not have any close family members to take care of him in his house. steak tenderizer machine are currently working on finding rehab for the patient. Patient decided to be full code. He has a POLST that says DNR(limited code, no intubation) he was recently signed with the patient in presence of his primary care doctor, however currently patient states that he wants to be a full code. Agnes Anderson MD. IM Resident PGY-1 Patient case discussed with resident, agree with the assessment and plan as above. Date of Service: May 19, 2025 Billing Provider: PERFECTO MCNEIL MD Common Visit Codes: [id number] INP/OBS CARE(HIGH) AGNES ANDERSON, RES May 19, 2025 18:44 PERFECTO MCNEIL MD May 24, 2025 18:38
[2025-05-19] MEDS: potassium Cl 20 mEq SR tablet PO PRN (21:31)
[2025-05-20 02:00] VITALS: BP 138/74; PULSE 74; RESP 8; TEMP 98.1; O2SAT 97
[2025-05-20] MEDS ORDERED: magnesium Cl slow-release 64mg tablet PO PRN (04:15)
[2025-05-20] MEDS ORDERED: magnesium sulf-water 4G/100mL 100 ML IV PRN (04:15)
[2025-05-20] MEDS ORDERED: potassium Cl 20 mEq SR tablet PO PRN (04:15)
[2025-05-20] MEDS ORDERED: potassium Cl 40MEQ/1/2NS 520ml 520 ML IV PRN (04:15)
[2025-05-20] MEDS ORDERED: magnesium sulf-water 2g/50mL 50 ML IV PRN (04:15)
[2025-05-20] MEDS: potassium Cl 20 mEq SR tablet PO PRN (04:25)
[2025-05-20 06:00] VITALS: BP 168/74; PULSE 78; RESP 12; TEMP 98.6; O2SAT 94
[2025-05-20 07:23] LABS: MEAN PLATELET VOLUME 9.7 FL (7.4-10.4); RED CELL DISTRIBUTION WIDTH 14.3 % (11.5-14.5)
[2025-05-20 07:50] LABS: CREATININE 2.89 MG/DL (0.60-1.10); PHOSPHORUS 2.1 MG/DL (2.3-4.5); TOTAL CARBON DIOXIDE 27.1 MMOL/L (24-32); eCRCL 19 ML/MIN; eGFR 21 ML/MIN
[2025-05-20] MEDS: K and/or MAG REPLACEMENT MC SCH (08:00)
[2025-05-20 08:25] VITALS: RESP 17; O2SAT 94
[2025-05-20 11:00] VITALS: BP 139/74; PULSE 78; RESP 14; TEMP 97.5; O2SAT 95
[2025-05-20] MEDS ORDERED: SODI650T29 PO (14:04)
[2025-05-20] MEDS ORDERED: HYDR25TA90 PO (14:04)
--- NOTE | 2025-05-20 19:59 | DISCHARGE SUMMARY-Residence ---
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 Rob application systems engineer Complications: None Condition on DC: Stable Discharge Summary: HPI as per admitting physician Patient is a poor historian, history is limited. History gathered from ED sign- out and medical records from [place]. 80-year-old male with history of hypertension, diabetes, CKD, is transferred from [place] for further evaluation and management of severe acute kidney injury, with concern of possible dialysis and nephrology consultation. His niece (Audra: [phone]) had called [phone] as the patient was feeling unwell for a week. Patient states that he thought it was flu, and he has been feeling weak and not right since the last one week. He complains of chills. Denies significant chest pains, diaphoresis, fevers, nasal congestion, expectoration, palpitations, or weight loss/weight gain. No other associated symptoms. No aggravating or relieving factors. He states that Cancino catheter was placed today at the facility. He has history of CKD, unknown baseline creatinine. He lives by himself with his CAD. He has been having kidney issues for the last couple of years since they are on and off". Does not drink or smoke. Uses a walker for ambulation. Discussed advanced directives and he wishes to be a full code. He has a POLST that states DNR, but currently he is saying he wants to be a full code. He also has a POA Keyla jade [phone], will need to readdress code status with her in a.m. Hospital course 79-year-old male patient was a transfer from [facility] for evaluation management of severe MONE on CKD. Patient has a history of CKD and used to follow up with the application systems engineer but could not remove which application systems engineer. On arrival patient's creatinine was severely elevated at nine with significant elevation of BUN and acidosis, we extensively hydrated the patient with fluids and Cancino's catheter was placed to prevent post renal obstruction. Patient ultrasound was unremarkable did not show any hydronephrosis. Dr. Rob application systems engineer was consulted and recommended continue hydration with bicarb drip with fluids. During the course of stay patient's creatinine continued to downtrend significantly and his uremia also reduced significantly. Patient's urinalysis possible leukocyte esterase, 5-10 WBC we initiated the patient on IV ceftriaxone. The patient's medical records he has a history of type 2 diabetes mellitus and will oral hypoglycemics glipizide and Mounjaro, his A1c was tightly controlled at 6.1%. Patient's history of hypotension for which she takes carvedilol 12.5 mg and hydralazine 50 mg b.i.d. however his blood pressure was extremely stopped during this admission, we continued patient's carvedilol 12.5 mg and decrease his hydralazine to 25 mg b.i.d. patient's echocardiogram repo rted mild aortic valve stenosis recommended outpatient follow up. Continued home medication atorvastatin 40 mg for his hyperlipidemia Physical examination the time of discharge General: Awake, oriented to person, place and time HEENT: Conjunctive are pink, sclerae clear, no icterus, pupil is equal in both sides, reactive to light, no ear discharge, no pharyngeal erythema or an edema. Neck: Supple, no JVD, no lymphadenopathy and thyromegaly. Chest: Equal air entry on both lungs, no additional sounds no rhonchi no wheezing at the moment. Cardiovascular: S1-S2 regular sinus rhythm and, regular rate, no gallops, no rubs, no murmurs Abdomen: No visible peristalsis, Bowel sounds present on auscultation, soft, no tenderness, no guarding, no rigidity, bruise near umbilicus post Mounjaro injection Extremities: Amputated left index finger(post trauma), no pitting edema bilaterally, capillary refill intact, peripheral pulsations are intact on both sides Neurologic: Mental status: alert and conscious, oriented to place, person and time, preserved memory, normal speech. Cranial nerves I-XII: Normal. Motor system: Preserved power, coordination, no evidenced involuntary movements, strength in lower extremities 3/5, strength in upper extremities 5/5 Sensory system: Preserved temperature, pain and vibration sensation. 2+ deep tendon reflexes in biceps, triceps, quadriceps. Negative Babinski. Cerebellar: No nystagmus, dysdiadochokinesia, normal [id number] testing. Musculoskeletal: No joint swelling, deformities, inflammations, and no scoliosis and back tenderness Skin: Warm and dry. Dry oral mucosa. Multiple bruises present Significant imaging Echocardiogram 05/17/2025 Overall LVEF is 65-70%. Normal LV size and function. Mild concentric hypertrophy. The right ventricle is normal size and function Trileaflet AV appears mildly stenotic. ANGÉLICA: 1.51 cmsq; Pkv: 2.2 m/sec; Gradients:21/10 mmHG. Mild insufficiency. The mitral valve is normal in structure. Trace regurgitation. TV appears structurally normal with no regurgitation. Normal pericardium. No effusion. Renal ultrasound 05/17/2025 NO SIGNIFICANT SONOGRAPHIC ABNORMALITY OF THE KIDNEYS. Vital Signs Date Time Temp Pulse Resp B/P (MAP) Pulse Ox O2 Delivery O2 Flow Rate FiO2 05/20/25 11:00 97.5 78 14 139/74 (95) 95 Room Air 05/20/25 08:25 0.0 21 Laboratory Tests Test 05/19/25 06:35 05/19/25 21:38 05/20/25 06:35 White Blood Count 5.7 X10'3 5.9 X10'3 Red Blood Count 3.46 X10'6 3.73 X10'6 Hemoglobin 10.7 g/dl 11.4 g/dl Hematocrit 31.1 % 33.3 % Mean Corpuscular Volume 90.1 FL 89.2 FL Mean Corpuscular Hemoglobin 31.1 PG 30.5 PG Mean Corpuscular Hemoglobin Concent 34.5 g/dL 34.2 g/dL Red Cell Distribution Width 14.3 % 14.3 % Platelet Count 101 X10'3 108 X10'3 Mean Platelet Volume 10.1 FL 9.7 FL Neutrophils (%) (Auto) 73.4 % 69.0 % Lymphocytes (%) (Auto) 10.3 % 12.6 % Monocytes (%) (Auto) 11.7 % 14.0 % Eosinophils (%) (Auto) 4.2 % 3.9 % Basophils (%) (Auto) 0.4 % 0.5 % Neutrophils # (Auto) 4.2 X10'3 4.1 X10'3 Lymphocytes # (Auto) 0.6 X10'3 0.7 X10'3 Monocytes # (Auto) 0.7 X10'3 0.8 X10'3 Eosinophils # (Auto) 0.2 X10'3 0.2 X10'3 Basophils # (Auto) 0.0 X10'3 0.0 X10'3 CBC Comment Sodium Level 142 MMOL/L 142 MMOL/L Potassium Level 3.4 MMOL/L 3.9 MMOL/L Chloride Level 108 MMOL/L 108 MMOL/L Carbon Dioxide Level 26.9 MMOL/L 27.1 MMOL/L Anion Gap 7 7 Blood Urea Nitrogen 55 MG/DL 45 MG/DL Creatinine 3.28 MG/DL 2.89 MG/DL Estimated GFR/1.73 m2 18 ML/MIN 21 ML/MIN BUN/Creatinine Ratio 16.8 15.6 Glucose Level 159 MG/DL 129 MG/DL Calcium Level 7.3 MG/DL 7.8 MG/DL Phosphorus Level 2.3 MG/DL 2.1 MG/DL Magnesium Level 1.5 MG/DL 1.5 MG/DL Total Bilirubin 0.4 MG/DL 0.4 MG/DL Aspartate Amino Transf (AST/SGOT) 13 U/L 13 U/L Alanine Aminotransferase (ALT/SGPT) 9 U/L 10 U/L Alkaline Phosphatase 52 IU/L 55 IU/L Total Protein 5.3 G/DL 5.6 G/DL Albumin 2.2 G/DL 2.3 G/DL Globulin 3.1 G/DL 3.3 G/DL Albumin/Globulin Ratio 0.7 0.7 Chemistry Comments Glucometer 154 mg/dl Discharge advise Please follow up with your primary care doctor within a week with CBC CMP and kidney functions tests Follow up with your subacute nurse, note that we have stopped your home medication valsartan 160 mg as you had low heart rate in 50s, and we decreased your hydralazine to 25 mg as you had low blood pressure Kindly follow up with Dr. Rob your application systems engineer [phone] Adequate hydration recommended *Problems/Diagnosis: (1) Acute kidney injury Status: Acute Total Time Spent on D/C: > 30 Minutes Date of Service: May 20, 2025 Billing Provider: PERFECTO MCNEIL MD Common Visit Codes: 54753-WUR/OBS DISCH DAY >30min KINZA ANDERSON, RES May 20, 2025 19:58 PERFECTO MCNEIL MD May 24, 2025 18:38
--- NOTE | 2025-05-20 22:10 | PROGRESS NOTE ---
Progress Note Dictate Providers to CC ~ Progress Note: This is a frail, elderly male with severe non-oliguric MONE on CKD, likely due to pre-renal azotemia from volume depletion and medication effects, with preserved urine output and no evidence of obstruction or intrinsic renal disease. Management is supportive, focusing on cautious volume repletion, holding nephrotoxic and renally cleared medications, and close monitoring for complications. Diabetes and hypertension regimens are adjusted for renal dysfunction. Cancino catheter care and monitoring for infection are ongoing. Nephrology will continue to follow for possible need for renal replacement therapy and further diagnostic clarification. Antibiotic Ordered?: N/A Subjective Subjective He reports doing well this morning, no specific complaints, nurses report no new events since last evaluation Objective Vitals Vital Signs Date Time Temp Pulse Resp B/P (MAP) Pulse Ox O2 Delivery O2 Flow Rate FiO2 05/20/25 11:00 97.5 78 14 139/74 (95) 95 Room Air 05/20/25 08:25 0.0 21 Alert, appears comfortable Regular rate rhythm without murmur, no JVD Clear to auscultation bilaterally, no wheezes Positive bowel sounds, nontender, no apparent masses No edema Lab Results: 05/20/25 0635 05/20/25 0635 Coagulation Studies Laboratory Tests Test 05/18/25 06:29 Prothrombin Time 10.5 SECONDS (9.0-12.0) INR International Normalized Ratio 1.0 INR Coagulation Comments Other Results I & O 05/20/25 07:00 Intake Total 2250 ml Output Total 2300 ml Balance -50 ml Intake Oral 2250 ml Output Urine Total 2300 ml # Bowel Movements 1 Problem\Assessment\Plan Problems/Diagnosis: (1) Acute kidney injury Assessment & Plan: Acute Kidney Injury on Chronic Kidney Disease (MONE on CKD): The patients MONE is improving, as evidenced by a downtrending creatinine (now 3.84 from 4.87), BUN (now 71 from 94), and stable to slightly increased urine output (1000 mL/24h). He is currently receiving D5W with bicarbonate, which has contributed to correction of his metabolic acidosis (CO2 now 21.5 from 18.5). Electrolytes are stable (sodium 145, potassium 3.9, chloride 115), and he remains non-oliguric. Blood pressure has improved to 143/74, supporting adequate renal perfusion. There are no signs of volume overload or uremic complications, and his respiratory and hemodynamic status remain stable. The improvement in renal function and metabolic parameters, along with stable urine output and hemodynamics, indicate a favorable response to supportive management. The correction of acidosis and maintenance of electrolyte balance with D5W and bicarbonate are appropriate. The absence of hyperkalemia, volume overload, or uremic symptoms means there is no current indication for renal replacement therapy. Plan: Continue D5W with bicarbonate infusion as long as metabolic acidosis persists, monitoring for overcorrection of sodium or glucose. Monitor daily labs: BMP, BUN, creatinine, CO2, glucose, and CBC. Continue to hold nephrotoxic and renally cleared medications (Jardiance, glipizide, Mounjaro, valsartan, hydralazine). Maintain strict intake and output monitoring. Monitor for signs of fluid overload, especially as renal function recovers and with ongoing IV fluids. Reassess fluid and bicarbonate needs daily; titrate or discontinue as acidosis resolves and renal function improves. Continue to avoid NSAIDs and other nephrotoxins. Monitor for any new or worsening symptoms that may indicate need for escalation of care or dialysis (e.g., refractory hyperkalemia, acidosis, volume overload, or uremic symptoms). PATRICE BARBOSA III DO May 20, 2025 22:09
[2025-05-21] MEDS ORDERED: Nepro carb steady vanilla 8oz. PO SCH (12:30)
== END 2025-05-20 14:54 | disposition home health service (06) | DRG 640 ==
LOC: ER 23:02 → ED HOLD 23:42 → EDBEDREQ 05-17 01:21 → PCU 3S 05-17 01:42
PROVIDERS: ADMIT Internal Medicine Pulmonary Disease; ATTEND Family Medicine
DX: E86.0 Dehydration (principal); N17.0 Acute kidney failure with tubular necrosis; N18.4 Chronic kidney disease, stage 4 (severe); E87.0 Hyperosmolality and hypernatremia; N39.0 Urinary tract infection, site not specified; Z79.01 Long term (current) use of anticoagulants; I12.9 Hypertensive chronic kidney disease with stage 1 through stage 4 chronic kidney disease, or unspecified chronic kidney disease; E11.22 Type 2 diabetes mellitus with diabetic chronic kidney disease; J44.89 Other specified chronic obstructive pulmonary disease; I35.0 Nonrheumatic aortic (valve) stenosis; Z20.822 Contact with and (suspected) exposure to COVID-19; E87.8 Other disorders of electrolyte and fluid balance, not elsewhere classified; E78.5 Hyperlipidemia, unspecified; I25.10 Atherosclerotic heart disease of native coronary artery without angina pectoris; N40.0 Benign prostatic hyperplasia without lower urinary tract symptoms; K21.9 Gastro-esophageal reflux disease without esophagitis; Z79.899 Other long term (current) drug therapy; Z79.84 Long term (current) use of oral hypoglycemic drugs
CPT/HCPCS: 36415; 71045; 76770; 80048; 80053; 80061; 80305; 81001; 82728; 82948; 83036; 83540; 83550; 83605; 83735; 83880; 83930; 83935; 84100; 84132; 84145; 84300; 84439; 84443; 84540; 85025; 85610; 85651; 87040; 87081; 87088; 87804; 87811; 93005; 93306; 94760; 97116; 97161; 97530; 99285; A6212; A6213; A6250; G0378; J0696; J1644; J1815; J3490; J7030; J7040; J7070